=== PATIENT | male | born 1975 | race Caucasian/White ===

== ENCOUNTER 2017-12-22 21:22 | Emergency (ER) | payer OTHER ==
[~2017-12-22] VITALS: Ht 190.5 cm; Wt 75.7 kg
[2017-12-22 21:28] VITALS: BP 123/80
--- NOTE | 2017-12-22 21:31 | NUR ---
PT AMBULATORY TO BR THEN TO ER LOBBY W/ STEADY GAIT IN STABLE CONDITION.
[2017-12-22 21:57] LABS: BASOPHILS # (AUTO) 0.1 K/uL (0.00-0.22); BASOPHILS % (AUTO) 0.6 % (0.0-2.0); EOSINOPHILS # (AUTO) 0.3 K/uL (0-0.4); HEMATOCRIT 43.4 % (36-52); HEMOGLOBIN 14.4 g/dL (12.0-18.0); MEAN CORPUSCULAR HEMOGLOBIN 28 pg (27-31); MEAN CORPUSCULAR HGB CONC 33 g/dL (33-37); MEAN CORPUSCULAR VOLUME 83.7 fL (80-94); MONOCYTES # (AUTO) 0.5 K/uL (0.8-1.0); MONOCYTES % (AUTO) 6.1 % (1.7-9.3); NEUTROPHILS # (AUTO) 4.7 K/uL (1.8-7.7); NEUTROPHILS % (AUTO) 55.3 % (42.2-75.2); PLATELET COUNT (AUTO) 210 K/uL (140-450); RED BLOOD CELL COUNT(AUTO) 5.18 MIL/uL (4.20-6.10); RED CELL DISTRIBUTION WIDTH 13.1 % (11.6-13.7); WHITE BLOOD COUNT (AUTO) 8.5 K/uL (4.8-10.8)
[2017-12-22 22:01] LABS: APPEARANCE,URINE CLEAR (CLEAR); BLOOD, URINE TRACE (NEGATIVE); COLOR,URINE YELLOW (YELLOW); UGLUCOSE NEGATIVE (NEGATIVE)
[2017-12-22 22:02] LABS: BILIRUBIN,URINE NEGATIVE (NEGATIVE); LEUKOCYTE ESTERASE ,URINE NEGATIVE (NEGATIVE); NITRITE, URINE NEGATIVE (NEGATIVE)
[2017-12-22 22:08] LABS: RBC,URINE NONE SEEN /HPF (0-5); WBC,URINE NONE SEEN /HPF (0-5)
--- NOTE | 2017-12-22 22:12 | NUR ---
42/M CAME IN W C/O LLQ ABD PAIN WORSENED TODAY S/P MEAL X 1 WEEK. REPORTS LAST BM WAS TODAY, STATES " IT WAS HARD" . ABD SOFT, ROUND, +TENDERNESS TO LLQ, BS ACTIVE X4 DENIES N/V/D, FEVER/CHILLS. PMH: LATENT TB
--- NOTE | 2017-12-22 22:12 | NUR ---
pt ambulated to bed 10
[2017-12-22 22:17] LABS: ANION GAP 8.1 (8-16); CARBON DIOXIDE 29.7 mmol/L (21-32); CREATININE 0.9 mg/dL (0.7-1.3); POTASSIUM 3.8 mmol/L (3.5-5.1)
[2017-12-22 22:23] LABS: ALBUMIN 4.1 g/dL (3.4-5.0); TOTAL BILIRUBIN 0.8 mg/dL (0.0-1.0)
[2017-12-22] MEDS ORDERED: NACL 0.9% 1,000 ML IV SCH (23:36)
--- NOTE | 2017-12-22 23:38 | NUR ---
2338---STARTED 1L NS 0.9% WIDE OPEN, L AC 18G AT 999ML/HR. 2355---NADR. 0038---COMPLETED 1L NS 0.9% BOLUS
--- NOTE | 2017-12-22 23:38 | NUR ---
NS 1L STARTED AT 2338, END TIME 29
[2017-12-22] MEDS ORDERED: KETOROLAC 30 MG/ML VIAL IVP ONE (23:40)
[2017-12-22] MEDS ORDERED: KETOROLAC 30 MG/ML VIAL ONE (23:58)
--- NOTE | 2017-12-23 | NUR ---
0000---GIVEN 30MG TORADOL IVP, LAC 18G. NADR.
--- NOTE | 2017-12-23 00:46 | NUR ---
DR. ERENDIRA GOMEZ EVALUATING PATIENT.
[2017-12-23] MEDS ORDERED: NACL 0.9% 1,000 ML IV STA (01:29)
[2017-12-23] MEDS ORDERED: KETOROLAC 30 MG/ML VIAL IVP ONE (01:30)
--- NOTE | 2017-12-23 02:36 | NUR ---
PT AMBULATED TO BATHROOM
--- NOTE | 2017-12-23 03:28 | NUR ---
Patient discharged with v/s stable. Written and verbal after care instructions given and explained. Patient alert, oriented and verbalized understanding of instructions. Ambulatory with steady gait. All questions addressed prior to discharge. ID band removed. Patient advised to follow up with PMD. Rx of CIPRO, FLAGYL, TRAMADOL given. Patient educated on indication of medication including possible reaction and side effects. Opportunity to ask questions provided and answered. IV removed, catheter intact and site benign. Applied folded 4x4 gauze and tape to stop bleeding.
[2017-12-23 03:32] VITALS: BP 119/68
== END 2017-12-23 03:28 | disposition home or self-care (01) ==
LOC: MED 21:22
DX: K76.9 Liver disease, unspecified (principal); D73.89 Other diseases of spleen
CPT/HCPCS: 36415; 74177; 80053; 81001; 83690; 85025; 96361; 96374; 99285; J1885; J7030; Q9967

== ENCOUNTER 2017-12-25 22:41 | Emergency (ER) | payer OTHER ==
[~2017-12-25] VITALS: Ht 190.5 cm; Wt 76.2 kg
[2017-12-25 22:46] VITALS: BP 143/87
--- NOTE | 2017-12-25 22:46 | NUR ---
TO BED # 3 AMBULATORY, REPORT GIVEN TO BRENNEN
--- NOTE | 2017-12-25 22:50 | NUR ---
PT PRESENTED ER WITH C/O PAIN IN THE ABDOMEN. PT STATED THAT HE HAD CONSTIPATION BUT NOW HAS BEEN HAVING DIARRHEA EVERY TIME HE EATS. PT STATED HE HAS PAIN IN THE LEFT SIDE OF THE ABDOMEN . BOWL SOUNDS ACTIVE IN ALL 4 Q. PT DENIES N/V AND FEVER AT THIS TIME. PT IS A/O X 4. PAIN LEVEL AT THIS TIME IS 7/10.SKIN IS PINK/WARM/DRY; VSS; PATIENT POSITIONED FOR COMFORT; HOB ELEVATED; BEDRAILS UP X2; BED DOWN. ER MD MADE AWARE OF PT STATUS.
--- NOTE | 2017-12-25 23:24 | NUR ---
Dr. Bain evaluating patient at bedside.
[2017-12-25 23:26] LABS: BASOPHILS # (AUTO) 0.1 K/uL (0.00-0.22); BASOPHILS % (AUTO) 0.7 % (0.0-2.0); EOSINOPHILS # (AUTO) 0.3 K/uL (0-0.4); EOSINOPHILS % (AUTO) 3.8 % (0.0-4.0); HEMATOCRIT 45.3 % (36-52); LYMPHOCYTES # (AUTO) 2.9 K/uL (2.0-11.5); LYMPHOCYTES % (AUTO) 38.1 % (20.5-51.1); MEAN CORPUSCULAR HEMOGLOBIN 28 pg (27-31); MEAN CORPUSCULAR HGB CONC 33 g/dL (33-37); MEAN CORPUSCULAR VOLUME 84.3 fL (80-94); MONOCYTES # (AUTO) 0.5 K/uL (0.8-1.0); MONOCYTES % (AUTO) 6.4 % (1.7-9.3); NEUTROPHILS # (AUTO) 3.9 K/uL (1.8-7.7); PLATELET COUNT (AUTO) 201 K/uL (140-450); RED BLOOD CELL COUNT(AUTO) 5.38 MIL/uL (4.20-6.10); RED CELL DISTRIBUTION WIDTH 13.5 % (11.6-13.7); WHITE BLOOD COUNT (AUTO) 7.7 K/uL (4.8-10.8)
[2017-12-25 23:32] LABS: ANION GAP 14.4 (8-16); CARBON DIOXIDE 26.8 mmol/L (21-32); CREATININE 0.9 mg/dL (0.7-1.3); POTASSIUM 4.2 mmol/L (3.5-5.1)
--- NOTE | 2017-12-25 23:35 | NUR ---
STOOL SPECIMEN COLLECTED AND SENT TO LAB. ANGLE VILLA NOTIFED
[2017-12-25 23:37] LABS: TOTAL BILIRUBIN 0.5 mg/dL (0.0-1.0)
[2017-12-26 00:02] VITALS: BP 128/76
--- NOTE | 2017-12-26 00:02 | NUR ---
Patient discharged with v/s stable. Written and verbal after care instructions given and explained. Patient alert, oriented and verbalized understanding of instructions. Ambulatory with steady gait. All questions addressed prior to discharge. ID band removed. Patient advised to follow up with PMD. Rx of BENTYL WAS given. Patient educated on indication of medication including possible reaction and side effects. Opportunity to ask questions provided and answered.
== END 2017-12-26 00:02 | disposition home or self-care (01) ==
LOC: MED 22:41
DX: R19.7 Diarrhea, unspecified (principal); R10.32 Left lower quadrant pain
CPT/HCPCS: 36415; 80053; 82272; 83690; 85025; 87045; 87070; 87177; 99284